=== PATIENT | male | born 1985 | race Two or more races ===

== ENCOUNTER 2017-06-19 16:09 | Emergency (ER) | payer BC ==
[~2017-06-19] VITALS: Ht 182.9 cm; Wt 81.2 kg
[2017-06-19] MEDS ORDERED: NAPROXEN500 M1 ORAL (17:48)
--- NOTE | 2017-06-19 17:49 | Emergency Room Report ---
History of Present Illness General Chief Complaint: Multiple Trauma/Fall Source: Patient Present Illness HPI 31 y/o male c/o bilateral forearm and back pain s/o fall yesterday. Patient was walking up stairs when he lost his footing on the first step causing him to land backwards on his forearms and landing on his posterior ribs causing pain. States that his pain is much improved but has bruising and local tenderness and wants to make sure he didn't break anything in his arms. No KO, headtrauma, chest pain, SOB, numbness, paralysis, incontinence, saddle anethesia, ALOC or foot drop. Allergies: Uncoded Allergies: ANTIBIOTIC (Allergy, Severe, Itching, 06/19/17) pt unable to recall name of abx given to him Patient History Past Medical History: see triage record Past Surgical History: none Pertinent Family History: none Immunizations: UTD Reviewed Nursing Documentation: PMH: Agreed; PSxH: Agreed Nursing Documentation-PMH Past Medical History: No History, Except For Review of Systems All Other Systems: negative except mentioned in HPI Physical Exam Vital Signs Date Time Temp Pulse Resp B/P (MAP) Pulse Ox O2 Delivery O2 Flow Rate FiO2 06/19/17 16:18 98.0 72 18 138/77 98 Room Air 98.1 Sp02 EP Interpretation: reviewed, normal General Appearance: no apparent distress, alert, GCS 15, non-toxic Head: normocephalic, atraumatic Eyes: bilateral eye normal inspection, bilateral eye PERRL ENT: hearing grossly normal, normal pharynx, no angioedema, normal voice, TMs + canals normal Neck: full range of motion, supple/symm/no masses Respiratory: chest non-tender, lungs clear, normal breath sounds, speaking full sentences Cardiovascular #1: regular rate, rhythm, no edema Musculoskeletal: back normal, digits/nails normal, gait/station normal, normal range of motion, tender - left posterior ribs mildly tender. Tenderness and echymosis on bilateral forearms. Neurologic: alert, oriented x3, responsive, motor strength/tone normal, sensory intact, speech normal Psychiatric: judgement/insight normal, memory normal, mood/affect normal, no suicidal/homicidal ideation Skin: normal color, no rash, warm/dry, well hydrated Medical Decision Making PA Attestation Dr. Griffin my supervising physician with whom patient management has been discussed with. Diagnostic Impression: Primary Impression: Contusion of forearm, left Additional Impressions: Contusion of forearm, right Rib contusion Fall (on) (from) other stairs and steps, initial encounter ER Course Pt. presents to the ED c/o bilateral forearm and back pain Ddx considered but are not limited to intracranial hemorrhage, concussion, skull fracture, spinal fracture, fracture, contusion, abrasion, laceration Vital signs: are WNL, pt. is afebrile H&PE are most consistent with contusion of forearm and rib ORDERS: XR of bilateral forearms are negative. Patient has no significant tenderness of the ribs. There was no head or neck injury. There is no spinal tenderness or step off / bony abnormalities. ED INTERVENTIONS: none required at this time. DISCHARGE: At this time pt. is stable for d/c to home. Will provide printed patient care instructions, and any necessary prescriptions. Care plan and follow up instructions have been discussed with the patient prior to discharge. Other X-Ray Diagnostic Results Other X-Ray Diagnostic Results : X-Ray ordered: XR Bilateral Forearms # of Views/Limited Vs Complete: 2 View Indication: Pain EP Interpretation: Yes YAMILETH Xray: Interpretation reviewed, by supervising MD, and agrees with findings. Interpretation: no dislocation, no fractures, other - soft tissue swelling Electronically Signed by: Heidi Warren PA-C Last Vital Signs Date Time Temp Pulse Resp B/P (MAP) Pulse Ox O2 Delivery O2 Flow Rate FiO2 06/19/17 16:18 98.0 72 18 138/77 98 Room Air 98.1 Status: unchanged Disposition: HOME, SELF-CARE Scripts Naproxen* (NAPROXEN*) 500 Mg Tablet. 500 MG ORAL TWICE A DAY for 10 Days, #20 TAB Prov: HEIDI WARREN 06/19/17 Referrals: NOT CHOSEN [facility]/,REFERRING (PCP) Patient Instructions: Contusion-SportsMed Additional Instructions: Take medication as directed. Patient advised to follow up with primary care provider within next 3-5 days for reexam if pain is still persisting. Advised patient to use RICE therapy and nsaids as prescribed. Patient is to go to the ER immediately if they experience any pain that is not responding to medication , excess swelling, pressure feeling, loss of color, cyanosis, paralysis, or numbness. HEIDI WARREN June 19, 2017 17:49
[2017-06-19 17:54] VITALS: BP 128/88
--- NOTE | 2017-06-20 10:25 | Diagnostic Imaging Report ---
Indication: Pain Forearm pain Findings: 2 views of the left forearm were obtained. No acute fractures, malalignment, erosions or periostitis are identified. Bone mineralization is within normal limits. Soft tissues are unremarkable. Impression: Negative for acute injury.
--- NOTE | 2017-06-20 10:25 | Diagnostic Imaging Report ---
Indication: Pain Findings: 2 views of the right forearm were obtained. No acute fractures, malalignment, erosions or periostitis are identified. . Soft tissues are unremarkable. Impression: Negative for acute injury
== END 2017-06-19 17:55 | disposition home or self-care (01) ==
LOC: EMR 17:07
DX: S50.12XA Contusion of left forearm, initial encounter (principal); S50.11XA Contusion of right forearm, initial encounter; S20.212A Contusion of left front wall of thorax, initial encounter; W10.9XXA Fall (on) (from) unspecified stairs and steps, initial encounter; Y92.89 Other specified places as the place of occurrence of the external cause
CPT/HCPCS: 99283